=== PATIENT | male | born 2000 | race Caucasian/White ===

== ENCOUNTER 2022-10-07 09:06 | Emergency (ER) | payer SELFPAY ==
[2022-10-07] MEDS ORDERED: Lidocaine 2% Viscous Solution 15 ML UD PO ONE (10:07)
[2022-10-07] MEDS ORDERED: Benzocaine 20% Topical Spray UD MUCMEM ONE (10:07)
== END 2022-10-07 10:30 | disposition home or self-care (01) ==
LOC: MW.ED 09:06
DX: K04.7 Periapical abscess without sinus (principal); K02.9 Dental caries, unspecified
CPT/HCPCS: 99282; A9270; 99283